=== PATIENT | male | born 1970 | race Caucasian/White ===

== ENCOUNTER → 2023-09-16 11:22 | Outpatient (REF) | payer OTHER, SELFPAY | LOC: RAD 11:22 | PROVIDERS: ATTENDING PHYSICIAN Family Medicine | DX: R07.89 Other chest pain (principal) | CPT/HCPCS: 71046 ==

== ENCOUNTER → 2023-10-22 12:52 | Outpatient (REF) | payer OTHER, SELFPAY | LOC: RAD 12:52 | PROVIDERS: ATTENDING PHYSICIAN Family Medicine | DX: R05.1 Acute cough (principal); J18.9 Pneumonia, unspecified organism | CPT/HCPCS: 71046 ==

== ENCOUNTER 2023-11-02 08:11 | Outpatient (RCR) | payer OTHER, SELFPAY | END 2023-11-02 23:59 | disposition home or self-care (01) | LOC: RPT 08:11 | PROVIDERS: ATTENDING PHYSICIAN Specialist; PRIMARYCARE PHYSICIAN Family Medicine | DX: C61 Malignant neoplasm of prostate (principal); M62.89 Other specified disorders of muscle; Z73.6 Limitation of activities due to disability | CPT/HCPCS: 97162; 97530 ==

== ENCOUNTER → 2023-11-05 07:21 | Outpatient (REF) | payer OTHER, SELFPAY | LOC: HWRAD 07:21 | PROVIDERS: ATTENDING PHYSICIAN Internal Medicine; FAMILY PHYSICIAN Family Medicine | DX: R04.2 Hemoptysis (principal); J18.9 Pneumonia, unspecified organism | CPT/HCPCS: 71250 ==

== ENCOUNTER 2023-12-01 06:10 | Day surgery (SDC) | payer OTHER, SELFPAY ==
[2023-12-01] VITALS (13 sets, daily range): BP systolic 105–130; BP diastolic 63–82; BMI 27.8
[2023-12-01] MEDS: NEOMYCIN ENEMA 1 BOTTLE RECTAL (06:40)
[2023-12-01] MEDS: NORMOSOL-R 1000 IV ×3 (06:58→21:43)
[2023-12-01] MEDS: TORADOL 15 MG IV ×2 (15:29→21:45)
[2023-12-01] MEDS: COLACE 100 MG PO (15:29)
[2023-12-01] MEDS: TYLENOL 650 MG PO (19:32)
[2023-12-01] MEDS: POLYSPORIN OINTMENT 1 APPLIC TOPICAL (21:44)
[2023-12-02] MEDS: TYLENOL 650 MG PO (01:09)
[2023-12-02 03:40] VITALS: BP 115/68
[2023-12-02] MEDS: TORADOL 15 MG IV ×2 (03:41→09:57)
[2023-12-02] MEDS: NORMOSOL-R 1000 IV (05:44)
[2023-12-02 06:02] LABS: Hematocrit 35.9 % (39.0-52.0); Hemoglobin 12.1 g/dL (13.0-18.0); Mean Corp Hgb Conc. 33.7 g/dL (33.0-37.0); Mean Corpuscular Hgb 29.2 pg (27.0-31.0); Mean Corpuscular Volume 86.7 fL (80.0-94.0); Mean Platelet Volume 9.6 fL (7.4-10.4); Platelet Count 274 10^3/uL (130-400); Red Blood Cell Count 4.14 10^6/uL (4.70-6.10); Red Cell Dist. Width 12.1 % (11.5-14.5); White Blood Cell Count 13.3 10^3/uL (4.8-10.8)
--- NOTE | 2023-12-02 06:05 | CM ---
Patient is scheduled for a Robotic Prostatectomy on 12/01/23. Spoke with patient prior to surgery via telephone to complete case management assessment and assess for discharge planning needs. Patient reports that he lives with his significant other
in a two story home. There is one step to enter and a flight of steps to the second floor. He currently functions independently. He has no DME and has never had VN services. He has prescription drug coverage and uses [facility] in [place].
PCP is Toney Daniels
Discussed discharge plans. Patient plans to return home at discharge. He states that he will have support from his significant other when he goes home. Discussed likely need for VN services and reviewed options. Patient selects VN.
[place] text will be sent to VN liaison, Christiane Phan, alerting her to surgery date and likely need for VN.
[2023-12-02 06:25] LABS: Blood Urea Nitrogen 16 mg/dl (9-20); Calcium 8.9 mg/dl (8.4-10.2); Carbon Dioxide 26 mmol/L (22-30); Chloride 99 mmol/L (98-107); Estimated Creatinine Clearance 78 ml/min; Glucose 119 mg/dl (70-99); Potassium 4.9 mmol/L (3.5-5.1); Sodium 137 mmol/L (135-145); eGFR > 60.00
[2023-12-02 07:12] VITALS: BP 153/83
--- NOTE | 2023-12-02 08:10 | W.PN.URO.CBU ---
Today's Communication / Plan
-
discharge
Assessment / Plan
-
stable
Diagnosis
-
Date of Service: December 02, 2023
-
Patient Diagnosis: Prostate Cancer, s/p Robotic Prostatectomy
Post Op Day: 1
Subjective
-
expected abdomino-pelvic discomfort
has ambulated
had BM this AM
feels fit for discharge
Objective
-
Vital Signs
Temp Pulse Resp BP Pulse Ox
98.2 F 61 16 115/68 97
12/02/23 03:40 12/02/23 03:40 12/02/23 03:40 12/02/23 03:40 12/02/23 03:40
Intake and Output
12/01/23 12/02/23 12/03/23
06:59 06:59 06:59
Intake Total 3730 / 3730
Output Total 4125 / 4125
Balance -395 / -395
Intake:
Oral fluids 1930 / 1930
IV fluids (Total) 1800 / 1800
Normosol 300 / 300
Output:
Urine, Reis 4125 / 4125
Other:
Number of unmeasured liquid
stools
Rectum 1
Laboratory Results
12/02/23 05:35
12/02/23 05:35
Physical Exam
-
General - well developed, well nourished, no acute distress
Chest - clear bilaterally
Abdomen - soft, no distention
Genitalia -Reis draining francisca urine
Skin - warm & dry with no rash
Neuro - AOx3, no motor deficits
Extremities - no clubbing, no cyanosis, no edema
Dressings - clean, dry, intact
[2023-12-02] MEDS: POLYSPORIN OINTMENT 1 APPLIC TOPICAL (08:27)
[2023-12-02] MEDS: COLACE PO ×2 (08:29→09:57)
--- NOTE | 2023-12-02 10:12 | CM ---
Reviewed the chart notes. Referral for [facility] sent via [facility]. Patient is being discharged to home today. Patient's significant other will provide transportation home. CM continues to be available to patient/family and is monitoring medical
plan for needs at discharge.
Plan: Discharge to home with VN services.
--- NOTE | 2023-12-02 11:25 | VNURNOTE ---
Home Health Liaison met with patient at 1015 to discuss [facility] nurse visits, schedule and homebound status. Patient is agreeable and understands that visits at home will be 2-3 x per week to assess and teach medical management and catheter care.
[facility] brochure provided with contact information. Patient is aware that [facility] will contact him for start of care in 1-2 days after discharge from .
[facility] referral completed in [facility].
[2023-12-02 11:34] VITALS: BP 166/93
[2023-12-02] MEDS: ULTRAM 50 MG PO (12:16)
== END 2023-12-02 13:31 | disposition home or self-care (01) ==
LOC: SDS 06:10
PROVIDERS: ATTENDING PHYSICIAN Specialist
DX: C61 Malignant neoplasm of prostate (principal)
CPT/HCPCS: 55866; 38571; 53431; 88305; 88307; 88309; 80048; 85027

== ENCOUNTER 2024-02-03 23:24 | Inpatient (IN) | payer OTHER, SELFPAY ==
[2024-02-03 18:46] VITALS: BP 133/76
--- NOTE | 2024-02-03 19:37 | ED.GENMED ---
History of Present Illness
<FREDDY Duarte - Last Filed: 02/03/24 23:02>
General
Chief Complaint: Fever
Source: patient
Exam Limitations: none
Time Seen by Provider: 02/03/24 19:27
History of Present Illness
History of Present Illness:
This is a 53 year old male that comes in with c/o fever and abd pain. States that 2 days ago he started feeling dizzy. States that he thought it was the heat. States that he laid down and he started with a fever. States that this started on Wednesday
at 2pm. States that on Wednesday he went to work and left early as he was not feeling good. States that he went home and started with chills and his temp was going up and down. States that the highest was 101.7 and then 98.3. Today he felt good this
morning and he eat and then tonight at 6pm he was outside and started with chills. States that he has some abd pain, headache and he feels a little foggy. Denies any chest pain, SOB, nausea, vomiting, diarhea, urinary burning.
Past History
<FREDDY Duarte - Last Filed: 02/03/24 23:02>
Past History
ED Past Medical History: Arrthythmia (Atrial fib), Cancer (Prostate CA) and Other (Diverticulitis, PNA, )
ED Past Surgical History: Cardiac (Ablation), Urological (Prostatectomy) and Other ([place] teeth, Hemorrhoids, )
Social History
Tobacco: Non-smoker
Alcohol: Occasional
Personal: Single
Living: alone
Review of Systems
<FREDDY Duarte - Last Filed: 02/03/24 23:02>
Review of Systems
All Other Systems: ROS reviewed and negative except as documented in HPI and ROS
Constitutional: Reports fever and chills
EENT: Reports no symptoms
Respiratory: Reports no symptoms; Denies cough or trouble breathing
Cardiac: Reports no symptoms; Denies chest pain
ABD/GI: Reports abdominal pain; Denies nausea, vomiting or diarrhea
: Reports no symptoms; Denies dysuria, frequency or urgency
Musculoskeletal: Reports no symptoms
Skin: Reports no symptoms
Neurological: Reports headache and other (like he is in a fog)
Psychiatric: Reports no symptoms
Phy Exam
<FREDDY Duarte - Last Filed: 02/03/24 23:02>
General Physical Exam
General Presentation: no apparent distress
General age: appears stated age
General Skin: warm and dry
General Habitus: normal
General Mental: alert
General Hydration: appears well hydrated
ENT Exam
ENT Exam: TM's normal, pharynx normal and neck supple
Eye Exam
Eye Exam: EOMI
Cardiovascular Exam
Cardiovascular Exam: regular rate/rhythm, no edema, no murmur and normal peripheral pulses
Pulmonary Exam
Pulmonary Exam: lungs clear, no respiratory distress, no rales, chest non tender, no crackles, no rhonchi, no wheezing and no cough
Gastrointestinal Exam
Gastrointestinal Exam: normal bowel sounds, soft, no organomegaly, no pulsatile mass, non distended and other (LLQ tenderness with palpation)
Musculoskeletal Exam
Musculoskeletal Exam: full ROM and no edema
Skin Exam
Skin Exam: normal color, warm/dry, no rash and no petechia
Psychiatric Exam
Psychiatric Exam: normal mood/affect
Course
<FREDDY Duarte - Last Filed: 02/03/24 23:02>
Orders/Labs/Results
Orders:
Orders
02/03/24 19:36
0.9% Sodium Chloride 1000 ml [Nss] 1,000 ml IV BOLUS
Ketorolac [Toradol] 30 mg IV NOW STA
02/03/24 19:42
CT Abd/pel W Iv And Oral Contr Urgent
Comment:
Reason For Exam: left lower abd pain
Iohexol [Omnipaque] See Protocol PO NOW STA
02/03/24 19:54
COVID-19 Antigen Urgent
Source: Nasal Swab
Complete Blood Count/With Diff Urgent
Comprehensive Metabolic Panel Urgent
Lactate Level [Lactic Acid] Urgent
Blood Culture Q30M
ROLANDO Source: Blood/Venous
Specimen Description:
Influenza A+B Rapid Molecular Urgent
ROLANDO Source: Nasal Swab
Specimen Description:
02/03/24 20:08
Blood Culture Q30M
ROLANDO Source: Blood/Venous
Specimen Description:
02/03/24 22:05
Urinalysis Reflex To Culture Urgent
Date Specimen was Collected: 02/03/24
Time Specimen was Collected: 22:04
Abnormal Lab Results
02/03/24
19:54
WBC 16.8 H 10^3/uL
(4.8-10.8)
RBC 4.24 L 10^6/uL
(4.70-6.10)
Hgb 12.5 L g/dL
(13.0-18.0)
Hct 34.7 L %
(39.0-52.0)
Abs Immat Gran (auto) 0.1 H 10^3/uL
(0-0.05)
Absolute Neuts (auto) 15.1 H 10^3/uL
(1.4-6.5)
Absolute Lymphs (auto) 0.6 L 10^3/uL
(1.2-3.4)
Absolute Monos (auto) 0.9 H 10^3/uL
(0.1-0.6)
Neutrophils % 90.1 H %
(42.2-75.2)
Lymphocytes % 3.6 L %
(20.5-51.1)
Glucose 134 H mg/dl
(70-99)
02/03/24 19:54
02/03/24 19:54
Leukocytosis. H/H slightly low. Glucose nonfasting. Lactic acid normal at 0.8, COVID negative, Influenza Negative. Urine negative for infection
Vital Signs
Initial and Last Documented VS:
Initial Vital Signs
Temp Pulse Resp BP Pulse Ox
101.5 F H 116 20 133/76 97
02/03/24 18:46 02/03/24 18:46 02/03/24 18:46 02/03/24 18:46 02/03/24 18:46
Last Documented Vital Signs
Temp Pulse Resp BP Pulse Ox
99.3 F 101 18 127/75 95
02/03/24 21:12 02/03/24 19:45 02/03/24 19:45 02/03/24 19:43 02/03/24 19:45
<Berto Reynoso, - Last Filed: 02/03/24 22:42>
Orders/Labs/Results
Orders:
Orders
02/03/24 19:36
0.9% Sodium Chloride 1000 ml [Nss] 1,000 ml IV BOLUS
Ketorolac [Toradol] 30 mg IV NOW STA
02/03/24 19:42
CT Abd/pel W Iv And Oral Contr Urgent
Comment:
Reason For Exam: left lower abd pain
Iohexol [Omnipaque] See Protocol PO NOW STA
02/03/24 19:54
COVID-19 Antigen Urgent
Source: Nasal Swab
Complete Blood Count/With Diff Urgent
Comprehensive Metabolic Panel Urgent
Lactate Level [Lactic Acid] Urgent
Blood Culture Q30M
ROLANDO Source: Blood/Venous
Specimen Description:
Influenza A+B Rapid Molecular Urgent
ROLANDO Source: Nasal Swab
Specimen Description:
02/03/24 20:08
Blood Culture Q30M
ROLANDO Source: Blood/Venous
Specimen Description:
02/03/24 22:05
Urinalysis Reflex To Culture Urgent
Date Specimen was Collected: 02/03/24
Time Specimen was Collected: 22:04
Abnormal Lab Results
02/03/24
19:54
WBC 16.8 H 10^3/uL
(4.8-10.8)
RBC 4.24 L 10^6/uL
(4.70-6.10)
Hgb 12.5 L g/dL
(13.0-18.0)
Hct 34.7 L %
(39.0-52.0)
Abs Immat Gran (auto) 0.1 H 10^3/uL
(0-0.05)
Absolute Neuts (auto) 15.1 H 10^3/uL
(1.4-6.5)
Absolute Lymphs (auto) 0.6 L 10^3/uL
(1.2-3.4)
Absolute Monos (auto) 0.9 H 10^3/uL
(0.1-0.6)
Neutrophils % 90.1 H %
(42.2-75.2)
Lymphocytes % 3.6 L %
(20.5-51.1)
Glucose 134 H mg/dl
(70-99)
02/03/24 19:54
02/03/24 19:54
Vital Signs
Initial and Last Documented VS:
Initial Vital Signs
Temp Pulse Resp BP Pulse Ox
101.5 F H 116 20 133/76 97
02/03/24 18:46 02/03/24 18:46 02/03/24 18:46 02/03/24 18:46 02/03/24 18:46
Last Documented Vital Signs
Temp Pulse Resp BP Pulse Ox
99.3 F 101 18 127/75 95
02/03/24 21:12 02/03/24 19:45 02/03/24 19:45 02/03/24 19:43 02/03/24 19:45
<FREDDY Duarte - Last Filed: 02/03/24 23:02>
MDM/Problems Addressed
Differential Diagnosis Includes:
diverticulitis, COVID, Influenza
MDM/Problems Addressed:
This is a 53 year old male that comes in with c/o fever and abd pain. States that this started on Wednesday and he has had a fever with chills.
Will get labs. COVID, Influenza and CT scan. Will give IV fluids and medicate for pain.
Back into see patient. Explained that the CT shows a cystic mass that is coming off the bladder. it is hard to say if they are connecting. Will admit patient and start on antibiotics. Hospitalist notified.
Chronic conditions affecting care:
History of diverticulitis,
Acute Exacerbation and/or Progression of Chronic Illness:
NA
<FREDDY Duarte - Last Filed: 02/03/24 23:02>
*Radiology
Radiology exam reviewed: radiology read reviewed (CT-At the left anterior margin of the urinary bladder, ther is a cystic mass measuring approximately 6X6X(.5cm in AP, trnsverse and craniocaudal dimensions respectively. This mass is new when
compared with the 08/31/2023 MRI examination and the etiology of this mass is uncertain. As it abuts the ), all reviewed NAD by ED Provider (CT cont- the urinary bladder, bladder diverticulum is included in the differential diagnosis though no
definite connection to the urinary bladder is demonstrated. There is concentric thickening of the wall of the urinary bladder to as much as 1cm such as may be seen with chronic partial bladder ) and other (CT cont-obstruction. Diverticuli are
present in the colon with no CT evidence of Diverticulitis. There is bilateral L5 spondylolysis with grade 2 spondylolisthesis of L5 on X1. There is degenerative disc disease at L5-S1. )
*Pulse Oximetry
Patient hypoxic: no
*EKG
Interpreted by ED Provider?: NA
Rate: EKG- N/A
*Caustic Room Attendant Interpretation
Rate: Caustic Room Attendant- N/A
*Critical Care Note
Total Time (30-74mins, 75-104mins- exclusive of procedures): Not Applicable
ED Attending Note
<FREDDY Duarte - Last Filed: 02/03/24 23:02>
-
Portions of this chart may have been created with voice recognition software.� Occasional wrong word or��sound alike� substitutions may have occurred due to the inherent limitations of voice recognition software.
<Berto Reynoso DO - Last Filed: 02/03/24 22:42>
ED Attending Note
Patient seen and examined by attending physician: Yes
I performed the substantive portion of visit, reviewed & personally made and approve the management plan that is documented in note by myself or MARIANNE.: Yes
Discharge Plan
Departure
Patient Disposition: Admit
Date of Disposition: 02/03/24
Time of Disposition: 23:00
Admit to: Med/Surg
Presentation/result/management discussed w/ accepting MD/DO: Hospitalist
Patient with high blood pressure during this ER visit?: Yes
Condition: Good
Covid-19: Negative COVID-19
Discharge Problem:
Fever, Abdominal cystic mass
Prescriptions:
No Action
multivit with min-folic acid [Multivitamin Gummies] 200 mcg Tablet,Chewable
2 tab PO DAILY
Probiotic 3 billion cell Capsule
3,000 mmu cells PO DAILY
cholecalciferol (vitamin D3) [Vitamin D3] 25 mcg (1,000 unit) Tablet
25 mcg PO DAILY
fluticasone propionate [Flonase Allergy Relief] 50 mcg/actuation [place],Suspension
1 spray INTRANASAL PRN PRN (Reason: sinus congestion)
fexofenadine-pseudoephedrine [Judi-D 24 Hour] 180-240 mg Tablet Extended Release 24 Hr
1 tab PO NOON
Rx Instructions:
@4pm
omega 5-zrt-ihs-fish oil [Fish Oil] 1,000 mg (120 mg-180 mg) Capsule
1 cap PO DAILY
naproxen sodium [Aleve] 220 mg tablet
440 mg PO BID PRN (Reason: pain) Qty: 1 0RF
tramadol 50 mg tablet
50 mg PO TID PRN (Reason: severe pain) Qty: 10 0RF
Referrals:
Toney Daniels, DO [Family Provider] -
Interventions
Interventions:
*Risk Screen - Suicide Last Done: 02/03/24 18:46
*General Assessment Last Done: 02/03/24 18:46
*Neglect/Abuse Screening Last Done: 02/03/24 18:46
ED- Fall Risk Assessment Last Done: 02/03/24 19:41
*ED COVID-19 Vaccine History Last Done: 02/03/24 18:46
ED- Neurological Assessment Last Done: 02/03/24 19:41
ED-Skin Assessment Last Done: 02/03/24 19:41
Discharge Date and Time
Print Language: GREENLANDIC
[2024-02-03 19:41] VITALS: BMI 24.9
[2024-02-03 19:43] VITALS: BP 127/75
[2024-02-03 20:00] VITALS: BP 122/72
[2024-02-03] MEDS: NSS 1000 IV (20:01)
[2024-02-03] MEDS: OMNIPAQUE 50 ML PO (20:02)
[2024-02-03] MEDS: TORADOL 30 MG IV (20:02)
[2024-02-03 20:06] LABS: % Basophils 0.2 % (0-2); % Eosinophils 0.1 % (0-6); % Immature Granulocytes 0.5 % (0-0.5); % Lymphocytes 3.6 % (20.5-51.1); % Monocytes 5.5 % (1.7-9.3); % Neutrophils 90.1 % (42.2-75.2); Absolute Immature Granulocytes 0.1 10^3/uL (0-0.05); Absolute Lymphocytes 0.6 10^3/uL (1.2-3.4); Absolute Monocytes 0.9 10^3/uL (0.1-0.6); Absolute Neutrophils 15.1 10^3/uL (1.4-6.5); Hematocrit 34.7 % (39.0-52.0); Hemoglobin 12.5 g/dL (13.0-18.0); Mean Corpuscular Hgb 29.5 pg (27.0-31.0); Mean Corpuscular Volume 81.8 fL (80.0-94.0); Mean Platelet Volume 9.5 fL (7.4-10.4); Nucleated Red Blood Cells % 0 % (-); Platelet Count 201 10^3/uL (130-400); Red Blood Cell Count 4.24 10^6/uL (4.70-6.10); White Blood Cell Count 16.8 10^3/uL (4.8-10.8)
[2024-02-03 20:17] LABS: Lactic Acid 0.8 mmol/L (0.7-2.0)
[2024-02-03 20:19] LABS: COVID-19 Antigen Negative (Negative)
[2024-02-03 20:23] LABS: ALT (SGPT) 30 U/L (0-50); AST (SGOT) 42 U/L (17-59); Albumin 4.2 g/dl (3.5-5.0); Alkaline Phosphatase 92 U/L (38-126); Blood Urea Nitrogen 10 mg/dl (9-20); Calcium 9.3 mg/dl (8.4-10.2); Carbon Dioxide 24 mmol/L (22-30); Chloride 102 mmol/L (98-107); Estimated Creatinine Clearance 98 ml/min; Glucose 134 mg/dl (70-99); Potassium 3.6 mmol/L (3.5-5.1); Sodium 135 mmol/L (135-145); Total Bilirubin 1.1 mg/dl (0.2-1.3); Total Protein 7.2 g/dl (6.3-8.2); eGFR > 60.00
[2024-02-03 21:00] VITALS: BP 117/65
[2024-02-03 22:18] LABS: Urine Albumin Negative (Neg - Trace); Urine Bilirubin Negative (Negative); Urine Character Clear (Clear); Urine Color Yellow; Urine Glucose Negative (Negative); Urine Ketone Negative (Negative); Urine Leukocyte Negative (Negative); Urine Nitrite Negative (Negative); Urine Occult Blood Negative (Negative); Urine Urobilinogen 1+ (Neg - 1+)
--- NOTE | 2024-02-03 23:23 | HPS.HSE ---
Family Physician
-
Family Physician: Toney Daniels
Chief Complaint
-
abdominal pain
History of Present Illness
53-year-old male past medical history of persistent atrial fibrillation, atrial flutter, diverticulitis, questionable irritable bowel syndrome, prostate cancer, probable BPH, insomnia, obesity, presenting with fever and abdominal pain which started
2 days ago. Pain is located in the suprapubic region. Pain does not radiate anywhere. Denies any urinary symptoms such as frequency or difficulty urinating or burning or blood in the urine. He did have some nausea without vomiting. Denies any
diarrhea. Denies any cough.
He had prostatectomy 2 months ago for prostate cancer by Dr. Ramsey and although he did have urinary symptoms previously this had resolved after surgery.
He drinks alcohol occasionally. He denies smoking.
Medical History
Past Medical History
Past Medical History: Reports Other ( persistent atrial fibrillation, atrial flutter, diverticulitis, questionable irritable bowel syndrome, prostate cancer, probable BPH, insomnia, obesity)
Past Surgical History: Reports Other ( Cardiac (Ablation), Urological (Prostatectomy) and Other ([place] teeth, Hemorrhoids, ))
Social History
Tobacco: Non-smoker
Alcohol: Occasional
Drug: None
Family History
Family History: Not pertinent
Allergies / Home Medications
Allergies reflects when Allergies were last updated in [employer].
Home Medications with original date entered in [employer]
Allergy/Medication List:
Allergies
Allergy/AdvReac Type Severity Reaction Status Date / Time
poison kirk extract Allergy super Verified 02/03/24 18:48
sensitive
and speads
easily
poison oak extract Allergy super Verified 02/03/24 18:48
sensitive
and speads
easily
poison sumac extract Allergy super Verified 02/03/24 18:48
sensitive
and speads
easily
pollen extracts Allergy sinus Verified 02/03/24 18:48
congestion
and
irritable
throat
Home Medications
multivitamin with minerals-folic acid 200 mcg chewable tablet (Multivitamin Gummies) 2 tab PO DAILY 05/20/23
cholecalciferol (vitamin D3) 25 mcg (1,000 unit) tablet (Vitamin D3) 25 mcg PO DAILY 10/28/23
lactobacillus combination no.4 3 billion cell capsule (Probiotic) 3,000 mmu cells PO DAILY 10/28/23
fexofenadine-pseudoephedrine ER 180 mg-240 mg tablet,ext.release 24 hr (Judi-D 24 Hour) 1 tab PO NOON 11/25/23
fluticasone propionate 50 mcg/actuation nasal spray,suspension (Flonase Allergy Relief) 1 spray intranasal PRN PRN sinus congestion 11/25/23
omega 8-sct-owp-fish oil 1,000 mg (120 mg-180 mg) capsule (Fish Oil) 1 cap PO DAILY 11/25/23
naproxen sodium 220 mg tablet (Aleve) 440 mg (2 x 220 mg) PO BID PRN pain #1 tab 12/01/23
tramadol 50 mg tablet 50 mg PO TID PRN severe pain #10 tabs 12/01/23
Review of Systems
-
History Source: Patient
A 12 point ROS was completed and negative except as noted: Yes
Constitutional: Reports No Symptoms
EENT: Reports No Symptoms
Respiratory: Reports No Symptoms
Cardiac: Reports No Symptoms
Abdomen/GI: Reports See HPI
: Reports No Symptoms
Musculoskeletal: Reports No Symptoms
Skin: Reports No Symptoms
Neurological: Reports No Symptoms
Endocrine: Reports No Symptoms
Hematologic/Lymphatic: Reports No Symptoms
Psych: Reports No Symptoms
Physical Exam
Vital Signs
Vital Signs
Temp Pulse Resp BP Pulse Ox
99.3 F 101 18 127/75 95
02/03/24 21:12 02/03/24 19:45 02/03/24 19:45 02/03/24 19:43 02/03/24 19:45
Physical Exam
General: Well Developed, Well Nourished and No Apparent Distress
HEENT: NormoCephalic, Moist mucous membranes and Atraumatic
Respiratory: Clear
Cardiac: S1/S2 and Regular Rhythm; No Murmur or Rub
GI: Soft, Non Distended, Normal Bowel Sounds and Tender (suprapubic ); No Organomegaly
Rectal: Deferred by Provider
Musculoskeletal: No Clubbing, No Cyanosis and No Edema
Skin: No Rash
Neuro: Nonfocal/grossly intact
Laboratory Results
-
02/03/24 19:54
02/03/24 19:54
Laboratory Results
Lactic Acid 0.8 mmol/L (0.7-2.0) 02/03/24 19:54
Total Bilirubin 1.1 mg/dl (0.2-1.3) 02/03/24 19:54
AST 42 U/L (17-59) 02/03/24 19:54
ALT 30 U/L (0-50) 02/03/24 19:54
Alkaline Phosphatase 92 U/L (38-126) 02/03/24 19:54
Data Reviewed
-
Lab Data: Labs Reviewed by me
Old Records: Reviewed
Impression/Plan
-
IMPRESSION:
PLAN:
# Sepsis (fever, tachycardia, leukocytosis) secondary to bladder mass possible abscess versus diverticulum
-CT abdomen pelvis shows cystic mass 6 x 6 x 9.5 cm at the left anterior margin of the urinary bladder which is new and abuts the urinary bladder which could be bladder diverticulum however no definitive connection to the urinary bladder is
demonstrated, concentric thickening of the wall of the urinary bladder
-Presenting like abscess
-Interestingly urinalysis does not suggest infection
-Check blood cultures
-IV fluids
-Zosyn
-N.p.o.
-Toradol, Dilaudid as needed for pain
-Urology consulted
History of prostate cancer status post prostatectomy 2 months ago
Probable BPH
Prior atrial fibrillation/atrial flutter resolved status post ablation
-Not on anticoagulation
History of diverticulitis
Questionable irritable bowel syndrome
Insomnia
Obesity
Full code
DVT prophylaxis�SCDs
N.p.o.
[2024-02-03] MEDS: ZOSYN 50 IV (23:41)
[2024-02-03 23:42] VITALS: BP 105/63
[2024-02-04] VITALS (7 sets, daily range): BP systolic 89–123; BP diastolic 59–69; BMI 27.5
--- NOTE | 2024-02-04 00:04 | CON.MD ---
Consultation - Medical
-
see dictated note
pt underwent robotic prostatectomy and LEFT sided pelvic lymph node dissection with dr julio end of december
has done very well- no urinary problems, no hematuria or dysuria, normal bowel function
admitted with 3 days of low grade temps/maliase and some supra-pubic discomfort
abd benign, rectal exam nl
wbc elevated- other labs wnl
ct scan shows large fluid collection of left side of bladder/pelvis- i believe c/w lymphocele
plan
admit
npo
zosyn
will review with dr fischer in am- but tentative plan is for IR drainage tomorrow
--- NOTE | 2024-02-04 01:00 | PTCARENOTE ---
Received patient from ED via stretcher; Lucky Ant orders. Pt admitted for Sepsis r/t large fluid collection of left side of bladder/pelvis, possible lymphocele per Urology. Pt ordered NPO (sips of clears ok) for tentative plan to IR drainage. PMH and
medications reviewed by this RN and patient. Plan of care discussed. Call richardson within reach
[2024-02-04] MEDS: NSS 1000 IV ×2 (01:01→11:40)
[2024-02-04] MEDS: ZOSYN 50 IV ×3 (05:04→17:17)
[2024-02-04 07:18] LABS: Hematocrit 33.3 % (39.0-52.0); Hemoglobin 11.2 g/dL (13.0-18.0); Mean Corp Hgb Conc. 33.6 g/dL (33.0-37.0); Mean Corpuscular Hgb 29.2 pg (27.0-31.0); Mean Corpuscular Volume 86.7 fL (80.0-94.0); Mean Platelet Volume 10.2 fL (7.4-10.4); Platelet Count 185 10^3/uL (130-400); Red Blood Cell Count 3.84 10^6/uL (4.70-6.10); Red Cell Dist. Width 13.1 % (11.5-14.5); White Blood Cell Count 17.8 10^3/uL (4.8-10.8)
[2024-02-04 07:26] LABS: INR 1.28; PT 16.1 Sec (11.4-14.6)
--- NOTE | 2024-02-04 07:32 | W.PN.URO.CBU ---
Today's Communication / Plan
-
IR drainage of fluid collection
Assessment / Plan
-
post op fever/pelvic fluid collection c/w lymphocele
reviewed with dr fischer and IR
continue zosyn/add probiotic
npo for IR drainage of collection with fluid to be sent for cx and cr level
Diagnosis
-
Date of Service: February 04, 2024
-
Patient Diagnosis:
s/p robotic prostatectomy
readmit with fluid/pelvic pain
ct c/w lymphocele
Subjective
-
pt feels about the same
soome loose stools with antibx
no problems urinating
wbc up a little/cr normal
Objective
-
Vital Signs
Temp Pulse Resp BP Pulse Ox
97.7 F 90 20 115/59 96
02/04/24 03:54 02/04/24 00:35 02/04/24 00:35 02/04/24 00:35 02/04/24 00:35
Intake and Output
02/03/24 02/04/24 02/05/24
06:59 06:59 06:59
Intake Total 700 / 700
Balance 700 / 700
Intake:
IV fluids (Total) 650 / 650
IV piggybacks 50 / 50
Laboratory Results
02/04/24 06:28
Review of Systems
-
Constitutional: Fever and Fatigue
Respiratory: No Symptoms
Cardiac: No Symptoms
Abdomen/GI: Abdominal Pain
: No Symptoms
Physical Exam
-
General - no acute distress
Abdomen - soft, non-tender
Genitalia - normal
[2024-02-04 07:45] LABS: ALT (SGPT) 39 U/L (0-50); AST (SGOT) 47 U/L (17-59); Albumin 3.4 g/dl (3.5-5.0); Alkaline Phosphatase 100 U/L (38-126); Blood Urea Nitrogen 11 mg/dl (9-20); Calcium 8.6 mg/dl (8.4-10.2); Carbon Dioxide 25 mmol/L (22-30); Chloride 103 mmol/L (98-107); Estimated Creatinine Clearance 77 ml/min; Glucose 105 mg/dl (70-99); Potassium 3.9 mmol/L (3.5-5.1); Sodium 137 mmol/L (135-145); Total Bilirubin 1.2 mg/dl (0.2-1.3); Total Protein 6.2 g/dl (6.3-8.2); eGFR > 60.00
[2024-02-04] MEDS: VISBIOME 1 CAP PO (08:22)
[2024-02-04] MEDS: THERAGRAN 1 TABLET PO (08:22)
[2024-02-04] MEDS: FLORASTOR 250 MG PO ×2 (08:22→20:09)
[2024-02-04] MEDS: VITAMIN D3 (cholecalciferol) 25 MCG PO (08:22)
--- NOTE | 2024-02-04 08:39 | W.PN.HOSP.TC ---
Today's Communication/Plan
-
see outlined plan
Assessment / Plan
Assessment / Plan
Assessment:
Sepsis (fever, tachycardia, leukocytosis) secondary to bladder mass possible abscess vs lymphocele versus diverticulum
- CT: left anterior margin of the urinary bladder, there is a cystic mass measuring approximately 6 x 6 x 9.5 cm in AP, transverse and craniocaudal dimensions respectively. This mass is new when compared with the 08/31/2023 MRI examination and the
etiology of this mass is uncertain. As it abuts the urinary bladder, bladder diverticulum is included in the differential diagnosis though no definite connection to the urinary bladder is demonstrated. concentric thickening of the wall of the
urinary bladder to as much as 1 cm such as may be seen with chronic partial bladder outlet obstruction.
- Urology consulted
- NPO for IR guided drainage today
- continue Zosyn day 1 and follow cultures
- pain control
History of prostate cancer
Underlying BPH
- s/p Robotic-assisted laparoscopic radical prostatectomy with Left staging pelvic lymphadenectomy 11/2023
- follows with Dr. Ramsey
Prior atrial fibrillation/atrial flutter resolved status post ablation
- not on anticoagulation
History of diverticulitis
Questionable IBS History
Insomnia
Obesity
DVT ppx: SCDs
Code: Full
Anticipated Discharge: > 48 hours
Subjective/Interval History
-
Date of Service: February 04, 2024
resting comfortable, no significant pain presently
Urinating ok
some loose stools
Objective Data
-
Labs:
Laboratory Results
02/04/24
06:28
WBC 17.8 H
Hgb 11.2 L
Hct 33.3 L
Plt Count 185
PT 16.1 H
INR 1.28
Sodium 137
Potassium 3.9
Chloride 103
Carbon Dioxide 25
BUN 11
Creatinine 1.0
Glucose 105 H
Calcium 8.6
Total Bilirubin 1.2
AST 47
ALT 39
Alkaline Phosphatase 100
Vital Signs:
Vital Signs
Temp Pulse Resp BP Pulse Ox
100.0 F 92 16 111/63 96
02/04/24 07:25 02/04/24 07:25 02/04/24 07:25 02/04/24 07:25 02/04/24 07:25
I&O
02/03/24 02/04/24 02/05/24
06:59 06:59 06:59
Intake Total 700 / 700
Balance 700 / 700
Physical Exam
-
General: Fever and Other (fatigued)
HEENT: Normocephalic and Atraumatic
Respiratory: Negative Wheezes or Rales
Cardiac: Regular Rhythm and S1/S2
GI: Soft and Nontender
Genito-urinary: No Costovertebral Tender
Musculoskeletal: No Edema
Neuro: AO x 3
Hematologic / Lymphatic: No Lymphadenopathy
Psych: Calm
Data Reviewed
-
Total Time Spent with Patient (in minutes): 45
Labs: Labs Reviewed by me
--- NOTE | 2024-02-04 10:58 | CM ---
Reviewed the chart notes and spoke with the patient at the bedside. Patient resides with significant other in a two story home with one step to enter. Patient reports no DME or SNF. Patient has had [facility] in the past. Patient confirmed pharmacy
of choice is the [facility] [address] [place]. The patient is scheduled to go to IR today for drainage of collection of fluid. CM continues to be available to patient/family and is monitoring medical plan for needs at discharge.
Plan: Discharge plans will depend on the patient's progress.
[2024-02-04 15:51] LABS: Body Fluid Creatinine 0.9 mg/dl
[2024-02-05] MEDS: NSS 1000 IV (00:13)
[2024-02-05] MEDS: TYLENOL 650 MG PO ×3 (00:13→20:25)
[2024-02-05] MEDS: ZOSYN 50 IV ×4 (00:14→17:49)
[2024-02-05 07:50] VITALS: BP 109/61
[2024-02-05] MEDS: NSS IV (08:35)
[2024-02-05] MEDS: VITAMIN D3 (cholecalciferol) 25 MCG PO (08:46)
[2024-02-05] MEDS: VISBIOME 1 CAP PO (08:46)
[2024-02-05] MEDS: FLORASTOR 250 MG PO ×2 (08:46→20:26)
[2024-02-05] MEDS: THERAGRAN 1 TABLET PO (08:46)
--- NOTE | 2024-02-05 09:22 | W.PN.URO.CBU ---
Today's Communication / Plan
-
Maintain drain
Continue IV abx pending cultures
Assessment / Plan
-
53m s/p radical prostatectomy, admitted with post op fever/pelvic fluid collection c/w lymphocele
s/p drainage by IR 02/03
continue zosyn
f/u cultures - gram positive organism prelim
Plan for discharge with drain to bulb suction and recording daily outputs
Diagnosis
-
Date of Service: February 05, 2024
-
Patient Diagnosis:
s/p robotic prostatectomy
readmit with fluid/pelvic pain
ct c/w lymphocele
Subjective
-
feeling better
no fevers
clear drainage
no pain
Objective
-
Vital Signs
Temp Pulse Resp BP Pulse Ox
98.2 F 64 14 109/61 97
02/05/24 07:50 02/05/24 07:50 02/05/24 07:50 02/05/24 07:50 02/05/24 07:50
Intake and Output
02/04/24 02/05/24 02/06/24
06:59 06:59 06:59
Intake Total 700 / 700 1750 / 1750
Output Total 110 / 110
Balance 700 / 700 1640 / 1640
Intake:
Oral fluids 1740 / 1740
IV fluids (Total) 650 / 650
IV piggybacks 50 / 50
Amount instilled into Drain (
Total)
Left Abdomen Placed in IR 10
Output:
Drain Output (Total) 110 / 110
Left Abdomen Placed in IR 110 / 110
Other:
Number of approximated MODERATE 3
amounts of urine
Physical Exam
-
General - well developed, well nourished, no acute distress
Chest - clear bilaterally
Abdomen - soft, non-tender, drain with straw colored clear drainage
Skin - warm & dry with no rash
Neuro - AOx3, no motor deficits
Extremities - no clubbing, no cyanosis, no edema
[2024-02-05 09:25] LABS: % Basophils 0.4 % (0-2); % Eosinophils 0.5 % (0-6); % Immature Granulocytes 0.4 % (0-0.5); % Lymphocytes 12.1 % (20.5-51.1); % Monocytes 13.1 % (1.7-9.3); % Neutrophils 73.5 % (42.2-75.2); Absolute Eosinophils 0.1 10^3/uL (0-0.7); Absolute Lymphocytes 1.1 10^3/uL (1.2-3.4); Absolute Monocytes 1.2 10^3/uL (0.1-0.6); Absolute Neutrophils 6.9 10^3/uL (1.4-6.5); Hematocrit 34.2 % (39.0-52.0); Hemoglobin 11.4 g/dL (13.0-18.0); Mean Corp Hgb Conc. 33.3 g/dL (33.0-37.0); Mean Corpuscular Hgb 29.2 pg (27.0-31.0); Mean Corpuscular Volume 87.5 fL (80.0-94.0); Mean Platelet Volume 10.2 fL (7.4-10.4); Nucleated Red Blood Cells % 0 % (-); Platelet Count 148 10^3/uL (130-400); Red Blood Cell Count 3.91 10^6/uL (4.70-6.10); Red Cell Dist. Width 13.6 % (11.5-14.5); White Blood Cell Count 9.4 10^3/uL (4.8-10.8)
--- NOTE | 2024-02-05 09:37 | PTCARENOTE ---
Patient requesting to speak with urology again. Peffer notified via tiger text
[2024-02-05 09:41] LABS: Carbon Dioxide 26 mmol/L (22-30); Estimated Creatinine Clearance 77 ml/min; Glucose 95 mg/dl (70-99); Sodium 141 mmol/L (135-145); eGFR > 60.00
[2024-02-05 09:50] LABS: Blood Urea Nitrogen 16 mg/dl (9-20); Calcium 8.6 mg/dl (8.4-10.2); Chloride 106 mmol/L (98-107); Potassium 4.3 mmol/L (3.5-5.1)
--- NOTE | 2024-02-05 13:11 | W.PN.HOSP.TC ---
Today's Communication/Plan
-
add Vanco for Gram + on culture
continue Zosyn for now
await final culture
EMI Drain/teaching
follow Urology recs
Assessment / Plan
Assessment / Plan
Assessment:
Sepsis (fever, tachycardia, leukocytosis) secondary to bladder mass possible abscess vs lymphocele versus diverticulum
- CT: left anterior margin of the urinary bladder, there is a cystic mass measuring approximately 6 x 6 x 9.5 cm in AP, transverse and craniocaudal dimensions respectively. This mass is new when compared with the 08/31/2023 MRI examination and the
etiology of this mass is uncertain. As it abuts the urinary bladder, bladder diverticulum is included in the differential diagnosis though no definite connection to the urinary bladder is demonstrated. concentric thickening of the wall of the
urinary bladder to as much as 1 cm such as may be seen with chronic partial bladder outlet obstruction.
- Urology following
- s/p IR guided drainage 02/03
- continue Vanco/Zosyn, day 1
- pain control
History of prostate cancer
Underlying BPH
- s/p Robotic-assisted laparoscopic radical prostatectomy with Left staging pelvic lymphadenectomy 11/2023
- follows with Dr. Ramsey
Prior atrial fibrillation/atrial flutter resolved status post ablation
- not on anticoagulation
History of diverticulitis
Questionable IBS History
Insomnia
Obesity
DVT ppx: SCDs
Code: Full
Anticipated Discharge: 24 - 48 hours
Subjective/Interval History
-
Date of Service: February 05, 2024
doing well post-drain procedure yesterday
no fevers
Objective Data
-
Labs:
Laboratory Results
02/05/24
09:00
WBC 9.4
Hgb 11.4 L
Hct 34.2 L
Plt Count 148
Sodium 141
Potassium 4.3
Chloride 106
Carbon Dioxide 26
BUN 16
Creatinine 1.0
Glucose 95
Calcium 8.6
Vital Signs:
Vital Signs
Temp Pulse Resp BP Pulse Ox
98.2 F 64 14 109/61 97
02/05/24 07:50 02/05/24 07:50 02/05/24 07:50 02/05/24 07:50 02/05/24 07:50
I&O
02/04/24 02/05/24 02/06/24
06:59 06:59 06:59
Intake Total 700 / 700 1750 / 1750
Output Total 110 / 110
Balance 700 / 700 1640 / 1640
Physical Exam
-
General: No Apparent Distress
HEENT: Normocephalic and Atraumatic
Respiratory: Negative Wheezes
Cardiac: Regular Rhythm and S1/S2
GI: Soft
Genito-urinary: No Costovertebral Tender and Other (IR drain in place, )
Neuro: AO x 3
Hematologic / Lymphatic: No Lymphadenopathy
Psych: Calm
Data Reviewed
-
Total Time Spent with Patient (in minutes): 41
Labs: Labs Reviewed by me
--- NOTE | 2024-02-05 13:53 | PHA.VAN.IN ---
Assessment
- Assessment
Renal Function: Appears similar to baseline
Maximum Temperature: 102
Minimum Temperature: 97.5
Concomitant Antimicrobials: Piperacillin-tazobactam
AUC Dosing Plan
- Dosing Variables
Dosing Weight (kg): 77.3
Dosing CrCl (ml/min): 77
Vd coefficient (L/kg): 0.7
- Empiric Dosing
Initial / Loading Dose: Vanc 2000mg--25.8mg/kg--administration pending
Maintenance Regimen: Vanc 1000mg IV q12H. Begin 02/05 0600
Estimated AUC (mcg*h/mL): 559.58
Estimated Peak (mcg*h/mL): 33.03
Estimated Trough (mcg/ml): 15.58
Estimated Half Life (H): 10.1
- Monitoring
No levels ordered at this time: Consider levels after 02/06 1800 dose.
Pharmacokinetics Vancomycin I
- -
Patient Age: 53
Patient Sex: Male
Vancomycin Day #: 1
Indication: Genito-Urinary Tract
Requesting Provider: Ruchi
Height / Weight:
Height 5 ft 6 in
Actual Weight 77.292 kg
IBW in k.8
Adjusted BW in k.2
- Vital Signs / Lab Results
Temp Pulse Resp BP Pulse Ox
98.2 F 64 14 109/61 97
02/05/24 07:50 02/05/24 07:50 02/05/24 07:50 02/05/24 07:50 02/05/24 07:50
Lab Results - Hematology
02/03/24 02/04/24 02/05/24
19:54 06:28 09:00
WBC 16.8 H 17.8 H 9.4
Lab Results - Chemistry
02/03/24 02/04/24 02/05/24
19:54 06:28 09:00
BUN 10 11 16
Creatinine 0.8 1.0 1.0
Estimated Creat Clear 98 77 77
Albumin 4.2 3.4 L
02/03/24
19:54
Lactic Acid 0.8
Lab Results - Urine
02/03/24
22:05
Urine Nitrite (Reflex) Negative
Leukocyte Esterase Rfl Negative
Microbiology Results
02/04/24 15:10 Body Fluid Culture - Preliminary
Fluid No Growth After 18-24 Hours
Gram Stain - Preliminary
02/03/24 20:08 Blood Culture - Preliminary
Blood/Venous No Growth in 24 hours- Final report to follow
02/03/24 19:54 Blood Culture - Preliminary
Blood/Venous No Growth in 24 hours- Final report to follow
02/03/24 19:54 Influenza Types A & B (GLADIS) - Final
Nasal Swab Negative for Influenza A & B, NAAT
Negative results must be combined with clinical observations
and patient history.
Nucleic Acid Amplification test (NAAT)performed on the
[employer] NOW platform.
[2024-02-05] MEDS: VANCOCIN 540 MG IV (14:03)
[2024-02-05 15:25] VITALS: BP 118/70
[2024-02-05 16:06] VITALS: BP 118/70
--- NOTE | 2024-02-05 18:27 | PTCARENOTE ---
Critical lab: Positive blood culture in progress forwarded to 1825 and placed in chart
[2024-02-05 23:13] VITALS: BP 105/73
[2024-02-06] MEDS: ZOSYN 50 IV ×3 (00:11→11:40)
[2024-02-06] MEDS: VANCOCIN 200 IV ×2 (05:50→17:33)
[2024-02-06] MEDS: THERAGRAN 1 TABLET PO (08:07)
[2024-02-06] MEDS: VISBIOME 1 CAP PO (08:07)
[2024-02-06] MEDS: VITAMIN D3 (cholecalciferol) 25 MCG PO (08:07)
[2024-02-06] MEDS: FLORASTOR 250 MG PO ×2 (08:07→21:01)
[2024-02-06 08:25] VITALS: BP 122/86
[2024-02-06 08:46] LABS: % Basophils 0.3 % (0-2); % Eosinophils 1.4 % (0-6); % Immature Granulocytes 0.5 % (0-0.5); % Lymphocytes 10.1 % (20.5-51.1); % Monocytes 13.8 % (1.7-9.3); % Neutrophils 73.9 % (42.2-75.2); Absolute Eosinophils 0.2 10^3/uL (0-0.7); Absolute Immature Granulocytes 0.1 10^3/uL (0-0.05); Absolute Lymphocytes 1.2 10^3/uL (1.2-3.4); Absolute Monocytes 1.6 10^3/uL (0.1-0.6); Absolute Neutrophils 8.4 10^3/uL (1.4-6.5); Hematocrit 33.2 % (39.0-52.0); Hemoglobin 11.3 g/dL (13.0-18.0); Mean Corpuscular Hgb 29.2 pg (27.0-31.0); Mean Corpuscular Volume 85.8 fL (80.0-94.0); Mean Platelet Volume 10.2 fL (7.4-10.4); Nucleated Red Blood Cells % 0 % (-); Platelet Count 182 10^3/uL (130-400); Red Blood Cell Count 3.87 10^6/uL (4.70-6.10); Red Cell Dist. Width 13.6 % (11.5-14.5); White Blood Cell Count 11.4 10^3/uL (4.8-10.8)
[2024-02-06 09:09] LABS: Blood Urea Nitrogen 12 mg/dl (9-20); Calcium 8.5 mg/dl (8.4-10.2); Carbon Dioxide 26 mmol/L (22-30); Chloride 107 mmol/L (98-107); Estimated Creatinine Clearance 77 ml/min; Glucose 107 mg/dl (70-99); Potassium 3.6 mmol/L (3.5-5.1); Sodium 141 mmol/L (135-145); eGFR > 60.00
--- NOTE | 2024-02-06 10:10 | PHA.VAN.FU ---
Vancomycin Assessment / Plan
- Assessment
Renal Function: Stable
WBC's are: Trending Up
In the past 24 hrs, patient has been: Febrile (Tmax = 100.6)
Concomitant Antimicrobials: Piperacillin-tazobactam
- Dosing Plan
Continue: Vanc 1000mg IV q12H
- Monitoring Plan
No level(s) ordered at this time: Consider levels after 02/06 1800 dose
- Follow Up
Pharmacy will continue to follow.
Vancomycin Follow UP
- -
Patient Age: 53
Patient Sex: Male
Vancomycin Day #: 2
Indication: Genito-Urinary Tract
Requesting Provider: Ruchi
Height / Weight:
Height 5 ft 6 in
Actual Weight 77.292 kg
IBW in k.8
Adjusted BW in k.2
- Vital Signs / Lab Results
Temp Pulse Resp BP Pulse Ox
98.2 F 66 16 122/86 96
02/06/24 08:25 02/06/24 08:25 02/06/24 08:25 02/06/24 08:25 02/06/24 08:25
Lab Results - Hematology
02/03/24 02/04/24 02/05/24
19:54 06:28 09:00
WBC 16.8 H 17.8 H 9.4
02/06/24
08:08
WBC 11.4 H
Lab Results - Chemistry
02/03/24 02/04/24 02/05/24
19:54 06:28 09:00
BUN 10 11 16
Creatinine 0.8 1.0 1.0
Estimated Creat Clear 98 77 77
Albumin 4.2 3.4 L
02/06/24
08:08
BUN 12
Creatinine 1.0
Estimated Creat Clear 77
Albumin
02/03/24
19:54
Lactic Acid 0.8
Microbiology Results
02/04/24 15:10 Body Fluid Culture - Preliminary
Fluid No Growth After 48 Hours
Gram Stain - Preliminary
02/03/24 20:08 Blood Culture - Preliminary
Blood/Venous Positive culture in progress
Gram Stain - Preliminary
02/03/24 19:54 Blood Culture - Preliminary
Blood/Venous No Growth in 48 hours- Final report to follow
--- NOTE | 2024-02-06 12:45 | W.PN.URO.CBU ---
Today's Communication / Plan
-
Continue abx
ID recs
Drain to bulb suction
Assessment / Plan
-
53m s/p radical prostatectomy, admitted with post op fever/pelvic fluid collection c/w lymphocele
s/p drainage by IR 02/03
continue zosyn
f/u cultures - gram positive organism prelim on blood cultures
ID recommendations for antibiotic course
Plan for discharge with drain to bulb suction and recording daily outputs
Diagnosis
-
Date of Service: February 06, 2024
-
Patient Diagnosis:
Post Op Day:
Patient Diagnosis:
s/p robotic prostatectomy
readmit with fluid/pelvic pain
ct c/w lymphocele
Subjective
-
Fever last night with headaches
Feeling well this AM
Had some mild vision changes yesterday that resolved after yesterday AM
Objective
-
Vital Signs
Temp Pulse Resp BP Pulse Ox
98.2 F 66 16 122/86 96
02/06/24 08:25 02/06/24 08:25 02/06/24 08:25 02/06/24 08:25 02/06/24 08:25
Intake and Output
02/05/24 02/06/24 02/07/24
06:59 06:59 06:59
Intake Total 1750 / 1750 1620 / 1620
Output Total 110 / 110 65 / 65
Balance 1640 / 1640 1555 / 1555
Intake:
Oral fluids 1740 / 1740 1620 / 1620
Amount instilled into Drain (
Total)
Left Abdomen Placed in IR
Output:
Drain Output (Total) 110 / 110 65 / 65
Left Abdomen Placed in IR 110 / 110 65 / 65
Other:
Number of approximated MODERATE 3 3
amounts of urine
Laboratory Results
02/06/24 08:08
02/06/24 08:08
Physical Exam
-
General - well developed, well nourished, no acute distress
Chest - clear bilaterally
Abdomen - soft, non-tender, drain in place with clear fluid
Skin - warm & dry with no rash
Neuro - AOx3, no motor deficits. Nonfocal, PEERLA
Extremities - no clubbing, no cyanosis, no edema
[2024-02-06 15:25] VITALS: BP 138/83
--- NOTE | 2024-02-06 15:52 | CON.ID ---
Consultation
-
Date/Time Consultation Requested: 02/06/24 8:31
Date/Time Consultation Performed: 02/06/24 15:53
Requesting Provider: Dr Hopper
Performing Provider: Dr Trujillo
Reason for Consultation: Bacteremia
Chief Complaint / Past History
Chief Complaint
abdominal pain
History of Present Illness
Mr Murray is a 53 year old male with history of Prostate cancer s/p robic prostatectomy about 2 months ago, diverticulitis who presented here 02/02 for suprapubic pain without radiation. No dysuria, urgency or hematuria. + Nausea, no vomiting. +
fevers.
Since arrival here has been spiking fevers to tmax of 102, curve is improving, bp stable, HR initially 16 now 11, hgb 11.3, plt 182, L shift noted on arrival, cr 1.0, lactic acid 0.8, one of two blood cultures with GPCS in the anaerobic culture only
thus far, CT cystic mass measuring approximately 6 x 6 x 9.5 cm, patient underwent drainage with IR showing 100 cs of yellow, nonpurulent fluid - it was sent for aerobic culture which showed GPCs on the gram stain but no growth. Patient is
currently on vancomycin and zoysn. ID is consulted for assistance with management.
Past History
Additional Past Medical History:
persistent atrial fibrillation, atrial flutter, diverticulitis, questionable irritable bowel syndrome, prostate cancer, probable BPH, insomnia, obesity
Additional Past Surgical History:
Cardiac (Ablation), Urological (Prostatectomy) and Other ([place] teeth, Hemorrhoids, )
Allergy History:
poison kirk extract Allergy (Verified 02/03/24 18:48)
super sensitive and speads easily
poison oak extract Allergy (Verified 02/03/24 18:48)
super sensitive and speads easily
poison sumac extract Allergy (Verified 02/03/24 18:48)
super sensitive and speads easily
pollen extracts Allergy (Verified 02/03/24 18:48)
sinus congestion and irritable throat
Medications Reviewed: Yes
Social History
Tobacco: Non-Smoker
Alcohol: Occasional
Drug: None
Family History
Family History: Not Pertinent
Review of Systems
Review of Systems
General: Fever and Chills
All systems: All other systems were reviewed and were negative
Vital Signs
Temp Pulse Resp BP Pulse Ox
98.2 F 66 16 122/86 96
02/06/24 08:25 02/06/24 08:25 02/06/24 08:25 02/06/24 08:25 02/06/24 08:25
Physical Exam
Physical Exam
Constitutional: No Acute Distress
Cardiovascular: Regular Rate and S1/S2; Negative Murmur or Rub
Pulmonary: Clear and Symmetric; Negative Wheezes, Rales or Rhonchi
Gastrointestinal: Soft, Non Tender, Non Distended and Normal Bowel Sounds
Genito-Urinary: Negative Suprapubic Tenderness
Skin: Warm and Dry; Negative Rash or Jaundice
Lines: Other (clear fluid in the drain)
Lab / Diagnostic Study Results
02/06/24 08:08
02/06/24 08:08
Abs Immat Gran (auto) 0.1 10^3/uL (0-0.05) H 02/06/24 08:08
Absolute Neuts (auto) 8.4 10^3/uL (1.4-6.5) H 02/06/24 08:08
Absolute Lymphs (auto) 1.2 10^3/uL (1.2-3.4) 02/06/24 08:08
Absolute Monos (auto) 1.6 10^3/uL (0.1-0.6) H 02/06/24 08:08
Absolute Basos (auto) 0.0 10^3/uL (0-0.2) 02/06/24 08:08
Immature Gran % 0.5 % (0-0.5) 02/06/24 08:08
Neutrophils % 73.9 % (42.2-75.2) 02/06/24 08:08
Lymphocytes % 10.1 % (20.5-51.1) L 02/06/24 08:08
Monocytes % 13.8 % (1.7-9.3) H 02/06/24 08:08
Eosinophils % 1.4 % (0-6) 02/06/24 08:08
Basophils % 0.3 % (0-2) 02/06/24 08:08
PT 16.1 Sec (11.4-14.6) H 02/04/24 06:28
INR 1.28 02/04/24 06:28
Lactic Acid 0.8 mmol/L (0.7-2.0) 02/03/24 19:54
Microbiology Results
Micro:
02/03/24 20:08 Blood Culture - Preliminary
Blood/Venous Positive culture in progress
Gram Stain - Preliminary
02/04/24 15:10 Body Fluid Culture - Preliminary
Fluid No Growth After 48 Hours
Gram Stain - Preliminary
02/03/24 19:54 Blood Culture - Preliminary
Blood/Venous No Growth in 48 hours- Final report to follow
02/03/24 19:54 Influenza Types A & B (GLADIS) - Final
Nasal Swab Negative for Influenza A & B, NAAT
Negative results must be combined with clinical observations
and patient history.
Nucleic Acid Amplification test (NAAT)performed on the
[employer] NOW platform.
Assessment / Plan
Intraabdominal Abscess/Infected Seroma
Bacteremia - possibly anaerobe
Fever
Leukocytosis
- body fluid gram stain: many GPCs that failed to grow in aerobic culture
- blood cultures: GPCs in anaerobic bottle only
- probably an anaerobe, would follow cultures another day to confirm aerobic bottle doesnt become positive as well
- repeat blood cultures x2
- continue vancomycin for now, stop zosyn start unasyn
- follow clinically, likely transition to oral therapy in next day of two
--- NOTE | 2024-02-06 16:49 | W.PN.HOSP.TC ---
Today's Communication/Plan
-
continue IV Abx per ID
follow repeat cultures
follow drain outputs
follow Urology recs
Assessment / Plan
Assessment / Plan
Assessment:
Sepsis (fever, tachycardia, leukocytosis) secondary to bladder mass possible abscess vs lymphocele versus diverticulum
- CT: left anterior margin of the urinary bladder, there is a cystic mass measuring approximately 6 x 6 x 9.5 cm in AP, transverse and craniocaudal dimensions respectively. This mass is new when compared with the 08/31/2023 MRI examination and the
etiology of this mass is uncertain. As it abuts the urinary bladder, bladder diverticulum is included in the differential diagnosis though no definite connection to the urinary bladder is demonstrated. concentric thickening of the wall of the
urinary bladder to as much as 1 cm such as may be seen with chronic partial bladder outlet obstruction.
- Urology following
- s/p IR guided drainage 02/03; follow cultures
- continue Vanco, day 2, Unasyn day 1 per ID
- pain control
Gram positive bacteremia
- continue Vanco, day 2, Unasyn day 1 per ID
- blood cultures repeat pending
History of prostate cancer
Underlying BPH
- s/p Robotic-assisted laparoscopic radical prostatectomy with Left staging pelvic lymphadenectomy 11/2023
- follows with Dr. Ramsey
Prior atrial fibrillation/atrial flutter resolved status post ablation
- not on anticoagulation
History of diverticulitis
Questionable IBS History
Insomnia
Obesity
DVT ppx: SCDs
Code: Full
Anticipated Discharge: > 48 hours
Subjective/Interval History
-
Date of Service: February 06, 2024
no new complaints
Objective Data
-
Labs:
Laboratory Results
02/06/24
08:08
WBC 11.4 H
Hgb 11.3 L
Hct 33.2 L
Plt Count 182 D
Sodium 141
Potassium 3.6
Chloride 107
Carbon Dioxide 26
BUN 12
Creatinine 1.0
Glucose 107 H
Calcium 8.5
Vital Signs:
Vital Signs
Temp Pulse Resp BP Pulse Ox
98.3 F 75 16 138/83 98
02/06/24 15:25 02/06/24 15:25 02/06/24 15:25 02/06/24 15:25 02/06/24 15:25
I&O
02/05/24 02/06/24 02/07/24
06:59 06:59 06:59
Intake Total 1750 / 1750 1620 / 1620
Output Total 110 / 110 65 / 65 30 / 30
Balance 1640 / 1640 1555 / 1555 -30 / -30
Physical Exam
-
General: No Apparent Distress
HEENT: Normocephalic and Atraumatic
Respiratory: Negative Wheezes or Rales
Cardiac: Regular Rhythm and S1/S2
GI: Soft
Genito-urinary: Other (drain in place)
Neuro: AO x 3
Hematologic / Lymphatic: No Lymphadenopathy
Psych: Calm
Data Reviewed
-
Total Time Spent with Patient (in minutes): 42
Labs: Labs Reviewed by me
[2024-02-06] MEDS: UNASYN IV ×2 (21:01→23:55)
[2024-02-06 23:17] VITALS: BP 116/75
[2024-02-06] MEDS: TYLENOL 650 MG PO (23:55)
[2024-02-07] MEDS: MELATONIN 5 MG PO ×2 (00:32→22:52)
[2024-02-07] MEDS: UNASYN IV ×3 (05:52→17:04)
[2024-02-07] MEDS: VANCOCIN 200 IV (06:30)
[2024-02-07 06:46] LABS: % Basophils 0.5 % (0-2); % Eosinophils 3.2 % (0-6); % Immature Granulocytes 0.5 % (0-0.5); % Lymphocytes 11.5 % (20.5-51.1); % Neutrophils 66.3 % (42.2-75.2); Absolute Basophils 0.1 10^3/uL (0-0.2); Absolute Eosinophils 0.4 10^3/uL (0-0.7); Absolute Immature Granulocytes 0.1 10^3/uL (0-0.05); Absolute Lymphocytes 1.3 10^3/uL (1.2-3.4); Absolute Monocytes 2.1 10^3/uL (0.1-0.6); Absolute Neutrophils 7.5 10^3/uL (1.4-6.5); Hematocrit 31.9 % (39.0-52.0); Mean Corp Hgb Conc. 34.5 g/dL (33.0-37.0); Mean Corpuscular Hgb 28.9 pg (27.0-31.0); Mean Corpuscular Volume 83.7 fL (80.0-94.0); Mean Platelet Volume 10.1 fL (7.4-10.4); Nucleated Red Blood Cells % 0 % (-); Platelet Count 203 10^3/uL (130-400); Red Blood Cell Count 3.81 10^6/uL (4.70-6.10); Red Cell Dist. Width 13.8 % (11.5-14.5); White Blood Cell Count 11.4 10^3/uL (4.8-10.8)
[2024-02-07 07:08] LABS: Blood Urea Nitrogen 9 mg/dl (9-20); Calcium 8.7 mg/dl (8.4-10.2); Carbon Dioxide 28 mmol/L (22-30); Chloride 105 mmol/L (98-107); Estimated Creatinine Clearance 86 ml/min; Glucose 98 mg/dl (70-99); Potassium 3.8 mmol/L (3.5-5.1); Sodium 142 mmol/L (135-145); eGFR > 60.00
[2024-02-07 07:30] VITALS: BP 139/77
--- NOTE | 2024-02-07 08:10 | W.PN.URO.CBU ---
Today's Communication / Plan
-
Continue abx per ID
Okay for discharge from standpoint when oral antibiotic regimen is determined
Assessment / Plan
-
53m s/p radical prostatectomy, admitted with post op fever/pelvic fluid collection c/w lymphocele
s/p drainage by IR 02/03
continue antibiotics per ID - vanc and unasyn
f/u repeat cultures - gram positive organism on blood cultures
Plan for discharge with drain to bulb suction and recording daily outputs
Okay for discharge from standpoint when oral antibiotic regimen is determined
Diagnosis
-
Date of Service: February 07, 2024
-
Patient Diagnosis:
Post Op Day:
Patient Diagnosis:
s/p robotic prostatectomy
readmit with fluid/pelvic pain
ct c/w lymphocele
Subjective
-
fever last night
otherwise no events and feeling well this AM
Objective
-
Vital Signs
Temp Pulse Resp BP Pulse Ox
101.2 F H 85 17 116/75 94
02/06/24 23:17 02/06/24 23:17 02/06/24 23:17 02/06/24 23:17 02/06/24 23:17
Intake and Output
02/06/24 02/07/24 02/08/24
06:59 06:59 06:59
Intake Total 1620 / 1620 2970 / 2970
Output Total / 30 / 30 30 / 30
Balance 1555 / 1555 2940 / 2940 -30 / -30
Intake:
Oral fluids 1620 / 1620 2520 / 2520
IV piggybacks 440 / 440
Amount instilled into Drain (
Total)
Left Abdomen Placed in IR
Output:
Drain Output (Total) 65 / 65 30 / 30 30 / 30
Left Abdomen Placed in IR
Other:
Number of approximated MODERATE 3 4
amounts of urine
Number of unmeasured liquid
stools
Rectum 1
Laboratory Results
02/07/24 06:03
02/07/24 06:03
Physical Exam
-
General - well developed, well nourished, no acute distress
[2024-02-07] MEDS: VITAMIN D3 (cholecalciferol) 25 MCG PO (08:12)
[2024-02-07] MEDS: FLORASTOR 250 MG PO ×2 (08:12→20:06)
[2024-02-07] MEDS: THERAGRAN 1 TABLET PO (08:12)
[2024-02-07] MEDS: VISBIOME 1 CAP PO (08:12)
--- NOTE | 2024-02-07 09:18 | PHA.VAN.FU ---
Vancomycin Assessment / Plan
- Assessment
Renal Function: Stable
WBC's are: Trending Up
In the past 24 hrs, patient has been: Febrile
Concomitant Antimicrobials: Ampicillin/Sulbactam
- Dosing Plan
Continue: 1gm Q12H
- Monitoring Plan
Peak Level: 02/06 @2030
Trough Level: 02/07 @0530
- Follow Up
Pharmacy will continue to follow.
Vancomycin Follow UP
- -
Patient Age: 53
Patient Sex: Male
Vancomycin Day #: 3
Indication: Genito-Urinary Tract
Requesting Provider: Ruchi
Height / Weight:
Height 5 ft 6 in
Actual Weight 77.292 kg
IBW in k.8
Adjusted BW in k.2
- Vital Signs / Lab Results
Temp Pulse Resp BP Pulse Ox
97.9 F 71 16 139/77 95
02/07/24 07:30 02/07/24 07:30 02/07/24 07:30 02/07/24 07:30 02/07/24 07:30
Lab Results - Hematology
02/05/24 02/06/24 02/07/24
09:00 08:08 06:03
WBC 9.4 11.4 H 11.4 H
Lab Results - Chemistry
02/05/24 02/06/24 02/07/24
09:00 08:08 06:03
BUN 16 12 9
Creatinine 1.0 1.0 0.9
Estimated Creat Clear 77 77 86
Microbiology Results
02/03/24 19:54 Blood Culture - Preliminary
Blood/Venous No Growth in 72 hours- Final report to follow
02/03/24 20:08 Blood Culture - Preliminary
Blood/Venous Positive culture in progress
Gram Stain - Preliminary
02/04/24 15:10 Body Fluid Culture - Preliminary
Fluid No Growth After 48 Hours
Gram Stain - Preliminary
--- NOTE | 2024-02-07 11:04 | W.PN.HOSP.TC ---
Today's Communication/Plan
-
await repeat cultures while continuing Vanco/Unasyn as per ID
Assessment / Plan
Assessment / Plan
Assessment:
Sepsis (fever, tachycardia, leukocytosis) secondary to bladder mass possible abscess vs lymphocele versus diverticulum
- CT: left anterior margin of the urinary bladder, there is a cystic mass measuring approximately 6 x 6 x 9.5 cm in AP, transverse and craniocaudal dimensions respectively. This mass is new when compared with the 08/31/2023 MRI examination and the
etiology of this mass is uncertain. As it abuts the urinary bladder, bladder diverticulum is included in the differential diagnosis though no definite connection to the urinary bladder is demonstrated. concentric thickening of the wall of the
urinary bladder to as much as 1 cm such as may be seen with chronic partial bladder outlet obstruction.
- Urology following
- s/p IR guided drainage 02/03; follow cultures
- continue Vanco, day 3, Unasyn day 2 per ID
- pain control
Gram positive, anaerobic bacteremia
- continue Vanco, day 2, Unasyn day 2 per ID
- blood cultures repeat pending
History of prostate cancer
Underlying BPH
- s/p Robotic-assisted laparoscopic radical prostatectomy with Left staging pelvic lymphadenectomy 11/2023
- follows with Dr. Ramsey
Prior atrial fibrillation/atrial flutter resolved status post ablation
- not on anticoagulation
History of diverticulitis
Questionable IBS History
Insomnia
Obesity
DVT ppx: SCDs
Code: Full
Anticipated Discharge: 24 - 48 hours
Subjective/Interval History
-
Date of Service: February 07, 2024
no new complaints at present
last night febrile which improved with Tylenol
Objective Data
-
Labs:
Laboratory Results
02/07/24
06:03
WBC 11.4 H
Hgb 11.0 L
Hct 31.9 L
Plt Count 203
Sodium 142
Potassium 3.8
Chloride 105
Carbon Dioxide 28
BUN 9
Creatinine 0.9
Glucose 98
Calcium 8.7
Vital Signs:
Vital Signs
Temp Pulse Resp BP Pulse Ox
97.9 F 71 16 139/77 95
02/07/24 07:30 02/07/24 07:30 02/07/24 07:30 02/07/24 07:30 02/07/24 07:30
I&O
02/06/24 02/07/24 02/08/24
06:59 06:59 06:59
Intake Total 1620 / 1620 2970 / 2970
Output Total 65 / 65 30 / 30 30 / 30
Balance 1555 / 1555 2940 / 2940 -30 / -30
Physical Exam
-
General: No Apparent Distress
HEENT: Normocephalic and Atraumatic
Respiratory: Negative Wheezes
Cardiac: Regular Rhythm and S1/S2
GI: Soft
Genito-urinary: No Costovertebral Tender
Neuro: AO x 3
Hematologic / Lymphatic: No Lymphadenopathy
Psych: Calm
Data Reviewed
-
Total Time Spent with Patient (in minutes): 42
Labs: Labs Reviewed by me
[2024-02-07] MEDS: TORADOL 10 MG IV (13:22)
--- NOTE | 2024-02-07 13:30 | PTCARENOTE ---
Patient stating to this RN his head feels 'foggy,' complaining of mild blurry vision; patient states similar symptoms occurring prior to admission and with fevers. Pupils round and equal, reactive to light bilaterally, patient with normal sensation
in upper and lower extremities, successfully read posters on bulletin board in front of bed out loud to this RN. Oral temp taken - 98.0F. PRN toradol given for pain around LLQ EMI drain rated 5/10. MD made aware, no new orders at this time.
--- NOTE | 2024-02-07 13:54 | CM ---
Reviewed the chart notes and spoke with the patient at the bedside. The patient anticipates being discharged to home with drain in place. Per patient, he is able to drain and record the amounts. CM continues to be available to patient/family and
is monitoring medical plan for needs at discharge.
Plan: Discharge plans at this point are home when medically stable with no anticipated needs.
[2024-02-07 15:30] VITALS: BP 123/69
--- NOTE | 2024-02-07 16:42 | W.PN.ID1 ---
Date of Service
Date of Service: February 07, 2024
Today's Communication
- stop vancomycin
- continue unasyn overnight- tomorrow AM switch to augmentin to complete 10 day course 02/02-02/11
- follow up with urology
Assessment / Plan
Intraabdominal Abscess/Infected Seroma
Bacteremia - gram positive anaerobe
Fever
Leukocytosis
- body fluid gram stain: many GPCs that failed to grow in aerobic culture
- blood cultures: GPCs in anaerobic bottle only
- probably an anaerobe, would follow cultures another day to confirm aerobic bottle doesnt become positive as well
- repeat blood cultures x2
- stop vancomycin
- continue unasyn overnight- tomorrow AM switch to augmentin to complete 10 day course 02/02-02/11
- follow up with urology
Chief Complaint
-: Other (intraabdominal abscess)
Subjective / Review of Systems
febrile to 1.1.2 overnight
bp stable
wbc 11.4
cr 0.9
blood culture IDd as anaerobic gpc
Vital Signs / Physical Exam
Vital Signs
Vital Signs
Temp Pulse Resp BP Pulse Ox
98.4 F 66 16 123/69 97
02/07/24 15:30 02/07/24 15:30 02/07/24 15:30 02/07/24 15:30 02/07/24 15:30
Physical Exam
Constitutional: No Acute Distress
Cardiovascular: Regular Rate and S1/S2; Negative Murmur or Rub
Pulmonary: Clear and Symmetric; Negative Wheezes or Rales
Gastrointestinal: Soft, Non Tender, Non Distended and Normal Bowel Sounds
Skin: Warm and Dry; Negative Rash or Jaundice
Objective Data
Lab Data
Lab Results
02/07/24 06:03
02/07/24 06:03
PT 16.1 Sec (11.4-14.6) H 02/04/24 06:28
INR 1.28 02/04/24 06:28
Estimated Creat Clear 86 ml/min 02/07/24 06:03
Lactic Acid 0.8 mmol/L (0.7-2.0) 02/03/24 19:54
Total Bilirubin 1.2 mg/dl (0.2-1.3) 02/04/24 06:28
AST 47 U/L (17-59) 02/04/24 06:28
ALT 39 U/L (0-50) 02/04/24 06:28
Alkaline Phosphatase 100 U/L (38-126) 02/04/24 06:28
Most recent labs reviewed.
Micro Results:
02/06/24 16:08 Blood Culture - Preliminary
Blood/Venous No Growth in 24 hours- Final report to follow
02/04/24 15:10 Body Fluid Culture - Preliminary
Fluid No Growth After 72 Hours
Gram Stain - Preliminary
02/03/24 20:08 Blood Culture - Preliminary
Blood/Venous Anaerobic gram positive cocci
Gram Stain - Preliminary
02/03/24 19:54 Blood Culture - Preliminary
Blood/Venous No Growth in 72 hours- Final report to follow
02/06/24 17:04 Blood Culture - Pending
Blood/Venous
02/03/24 19:54 Influenza Types A & B ([facility]) - Final
Nasal Swab Negative for Influenza A & B, NAAT
Negative results must be combined with clinical observations
and patient history.
Nucleic Acid Amplification test (NAAT)performed on the
[employer] platform.
[2024-02-07] MEDS: TYLENOL 650 MG PO (20:07)
[2024-02-07 23:25] VITALS: BP 122/71
[2024-02-08] MEDS: AUGMENTIN 875 MG/125 MG 1 TABLET PO (06:21)
[2024-02-08 07:35] VITALS: BP 128/82
[2024-02-08 07:38] LABS: % Basophils 0.4 % (0-2); % Eosinophils 3.7 % (0-6); % Immature Granulocytes 0.6 % (0-0.5); % Lymphocytes 12.1 % (20.5-51.1); % Monocytes 12.8 % (1.7-9.3); % Neutrophils 70.4 % (42.2-75.2); Absolute Basophils 0.1 10^3/uL (0-0.2); Absolute Eosinophils 0.5 10^3/uL (0-0.7); Absolute Immature Granulocytes 0.1 10^3/uL (0-0.05); Absolute Lymphocytes 1.5 10^3/uL (1.2-3.4); Absolute Monocytes 1.6 10^3/uL (0.1-0.6); Absolute Neutrophils 8.9 10^3/uL (1.4-6.5); Hematocrit 33.5 % (39.0-52.0); Hemoglobin 11.4 g/dL (13.0-18.0); Mean Corpuscular Hgb 29.2 pg (27.0-31.0); Mean Corpuscular Volume 85.7 fL (80.0-94.0); Mean Platelet Volume 10.2 fL (7.4-10.4); Nucleated Red Blood Cells % 0 % (-); Platelet Count 250 10^3/uL (130-400); Red Blood Cell Count 3.91 10^6/uL (4.70-6.10); Red Cell Dist. Width 13.8 % (11.5-14.5); White Blood Cell Count 12.7 10^3/uL (4.8-10.8)
[2024-02-08 07:57] LABS: Blood Urea Nitrogen 9 mg/dl (9-20); Carbon Dioxide 30 mmol/L (22-30); Chloride 104 mmol/L (98-107); Estimated Creatinine Clearance 96 ml/min; Glucose 100 mg/dl (70-99); Potassium 3.9 mmol/L (3.5-5.1); Sodium 141 mmol/L (135-145); eGFR > 60.00
[2024-02-08] MEDS: FLORASTOR 250 MG PO (08:34)
[2024-02-08] MEDS: VITAMIN D3 (cholecalciferol) 25 MCG PO (08:35)
[2024-02-08] MEDS: THERAGRAN 1 TABLET PO (08:35)
[2024-02-08] MEDS: VISBIOME 1 CAP PO (08:35)
--- NOTE | 2024-02-08 09:11 | W.PN.URO.CBU ---
Today's Communication / Plan
-
Stable for discharge
Assessment / Plan
-
53m s/p radical prostatectomy, admitted with post op fever/pelvic fluid collection c/w lymphocele
s/p drainage by IR 02/03
continue oral antibiotics course per ID. Afebrile x36 hours
Discharge with drain to bulb suction and patient instructed on recording daily outputs
Okay for discharge from standpoint
Outpatient follow up with Dr. Ramsey to determine timing of drain removal
Diagnosis
-
Date of Service: February 08, 2024
-
Patient Diagnosis:
s/p robotic prostatectomy
readmit with fluid/pelvic pain
ct c/w lymphocele
Subjective
-
feeling well
no fevers
mild pain at tube site
Objective
-
Vital Signs
Temp Pulse Resp BP Pulse Ox
98.7 F 62 18 122/71 98
02/07/24 23:25 02/07/24 23:25 02/07/24 23:25 02/07/24 23:25 02/07/24 23:25
Intake and Output
02/07/24 02/08/24 02/09/24
06:59 06:59 06:59
Intake Total 2970 / 2970 2770 / 2770
Output Total 30 60 / 60
Balance 2940 / 2940 2710 / 2710
Intake:
Oral fluids 2520 / 2520 2760 / 2760
IV piggybacks 440 / 440
Amount instilled into Drain (
Total)
Left Abdomen Placed in IR
Output:
Drain Output (Total) 60 / 60
Left Abdomen Placed in IR 60 / 60
Other:
Number of approximated SMALL 1
amounts of urine
Number of approximated MODERATE 4 3
amounts of urine
Number of unmeasured liquid
stools
Rectum 1
Laboratory Results
02/08/24 06:36
02/08/24 06:36
Physical Exam
-
General - well developed, no acute distress
Chest - clear
Abdomen - soft, non-tender. Drain in place with no erythema, clear straw colored fluid
Skin - warm & dry with no rash
--- NOTE | 2024-02-08 10:57 | W.PN.HOSP.TC ---
Today's Communication/Plan
-
dc today if cleared by ID
Assessment / Plan
Assessment / Plan
Assessment:
Sepsis (fever, tachycardia, leukocytosis) secondary to bladder mass possible abscess vs lymphocele versus diverticulum
- CT: left anterior margin of the urinary bladder, there is a cystic mass measuring approximately 6 x 6 x 9.5 cm in AP, transverse and craniocaudal dimensions respectively. This mass is new when compared with the 08/31/2023 MRI examination and the
etiology of this mass is uncertain. As it abuts the urinary bladder, bladder diverticulum is included in the differential diagnosis though no definite connection to the urinary bladder is demonstrated. concentric thickening of the wall of the
urinary bladder to as much as 1 cm such as may be seen with chronic partial bladder outlet obstruction.
- Urology following
- s/p IR guided drainage 02/03; follow cultures
- DC on Augmentin until 02/11 per ID
- pain control
Gram positive, anaerobic bacteremia
- DC on Augmentin until 02/11 per ID
- blood cultures repeat NGTD x 24 hours
History of prostate cancer
Underlying BPH
- s/p Robotic-assisted laparoscopic radical prostatectomy with Left staging pelvic lymphadenectomy 11/2023
- follows with Dr. Ramsey
Prior atrial fibrillation/atrial flutter resolved status post ablation
- not on anticoagulation
History of diverticulitis
Questionable IBS History
Insomnia
Obesity
DVT ppx: SCDs
Code: Full
Anticipated Discharge: Today
Subjective/Interval History
-
Date of Service: February 08, 2024
feels well no complaints
Objective Data
-
Labs:
Laboratory Results
02/08/24
06:36
WBC 12.7 H
Hgb 11.4 L
Hct 33.5 L
Plt Count 250 D
Sodium 141
Potassium 3.9
Chloride 104
Carbon Dioxide 30
BUN 9
Creatinine 0.8
Glucose 100 H
Calcium 9.0
Vital Signs:
Vital Signs
Temp Pulse Resp BP Pulse Ox
98.8 F 69 14 128/82 98
02/08/24 07:35 02/08/24 07:35 02/08/24 07:35 02/08/24 07:35 02/08/24 07:35
I&O
02/07/24 02/08/24 02/09/24
06:59 06:59 06:59
Intake Total 2970 / 2970 2770 / 2770
Output Total 30 / 30 60 / 60
Balance 2940 / 2940 2710 / 2710
Physical Exam
-
General: No Apparent Distress
HEENT: Normocephalic and Atraumatic
Respiratory: Negative Wheezes
Cardiac: Regular Rhythm and S1/S2
GI: Soft
Musculoskeletal: No Edema
Neuro: AO x 3
Hematologic / Lymphatic: No Lymphadenopathy
Psych: Calm
Data Reviewed
-
Total Time Spent with Patient (in minutes): 41
Labs: Labs Reviewed by me
--- NOTE | 2024-02-08 12:01 | W.PN.ID1 ---
Date of Service
Date of Service: February 08, 2024
Today's Communication
- switch to augmentin to complete 10 day course 02/02-02/11
- follow up with urology
Assessment / Plan
Intraabdominal Abscess/Infected Seroma
Bacteremia - gram positive anaerobe
Fever
Leukocytosis
- body fluid gram stain: many GPCs that failed to grow in aerobic culture
- blood cultures: GPCs in anaerobic bottle only - probable anaerobe
- repeat blood cultures x2 no growth to date
- switch to augmentin to complete 10 day course 02/02-02/11
- follow up with urology
Chief Complaint
-: Other (intraabdominal abscess)
Subjective / Review of Systems
afebrile
bp stable
minimal leukocytosis
no left shift
cr stable
repeat blood cultures no growth to date
Vital Signs / Physical Exam
Vital Signs
Vital Signs
Temp Pulse Resp BP Pulse Ox
98.8 F 69 14 128/82 98
02/08/24 07:35 02/08/24 07:35 02/08/24 07:35 02/08/24 07:35 02/08/24 07:35
Physical Exam
Constitutional: No Acute Distress
Cardiovascular: Regular Rate and S1/S2; Negative Murmur or Rub
Pulmonary: Clear and Symmetric; Negative Wheezes or Rales
Gastrointestinal: Soft, Non Tender, Non Distended and Normal Bowel Sounds
Skin: Warm and Dry; Negative Rash or Jaundice
Objective Data
Lab Data
Lab Results
02/08/24 06:36
02/08/24 06:36
PT 16.1 Sec (11.4-14.6) H 02/04/24 06:28
INR 1.28 02/04/24 06:28
Estimated Creat Clear 96 ml/min 02/08/24 06:36
Lactic Acid 0.8 mmol/L (0.7-2.0) 02/03/24 19:54
Total Bilirubin 1.2 mg/dl (0.2-1.3) 02/04/24 06:28
AST 47 U/L (17-59) 02/04/24 06:28
ALT 39 U/L (0-50) 02/04/24 06:28
Alkaline Phosphatase 100 U/L (38-126) 02/04/24 06:28
Most recent labs reviewed.
Micro Results:
02/04/24 15:10 Body Fluid Culture - Preliminary
Fluid No Growth After 72 Hours
Gram Stain - Preliminary
02/03/24 20:08 Blood Culture - Preliminary
Blood/Venous Anaerobic gram positive cocci
Gram Stain - Preliminary
02/03/24 19:54 Blood Culture - Preliminary
Blood/Venous No Growth in 4 days- Final report to follow
02/06/24 17:04 Blood Culture - Preliminary
Blood/Venous No Growth in 24 hours- Final report to follow
02/06/24 16:08 Blood Culture - Preliminary
Blood/Venous No Growth in 24 hours- Final report to follow
02/03/24 19:54 Influenza Types A & B ([facility]) - Final
Nasal Swab Negative for Influenza A & B, NAAT
Negative results must be combined with clinical observations
and patient history.
Nucleic Acid Amplification test (NAAT)performed on the
[employer] platform.
--- NOTE | 2024-02-08 12:10 | CM ---
Addendum entered by Carito Han RN 02/08/24 13:34:
Patient drove self home.
Original Note:
Reviewed the chart notes and spoke with the patient at the bedside. Patient is being discharged today to home. Patient's significant other will provide transportation. CM continues to be available to patient/family and is monitoring medical plan
for needs at discharge.
Plan: Discharge to home.
--- NOTE | 2024-02-08 12:23 | W.DS.TRANS ---
DC Summary - [employer]
-
Discharge Instructions:
Sleep Apnea Risk Low
Discharge Diagnosis/Procedures infected lymphocele and bacteremia
Diet Regular
Activity As tolerated
Bathing Restrictions no submerging in water, just showers, no baths
Instructions:
Stand-Alone Forms:
Changes to Home Medications: No
Discharge Medications:
DC Medications w/original date entered in [employer]
multivitamin with minerals-folic acid 200 mcg chewable tablet (Multivitamin Gummies) 2 tab PO DAILY Supplement 05/20/23
cholecalciferol (vitamin D3) 25 mcg (1,000 unit) tablet (Vitamin D3) 25 mcg PO DAILY Supplement 10/28/23
lactobacillus combination no.4 3 billion cell capsule (Probiotic) 3,000 mmu cells PO DAILY Gastrointestinal Issue 10/28/23
omega 8-pbj-ulo-fish oil 1,000 mg (120 mg-180 mg) capsule (Fish Oil) 1 cap PO DAILY Supplement 11/25/23
sildenafil 100 mg tablet 100 mg PO DAILY PRN ed 02/03/24
amoxicillin 875 mg-potassium clavulanate 125 mg tablet 1 tab PO Q12 #9 tabs 02/08/24
Home Medication Changes
Pending Results: No
Total time spent discharging patient (in min): 41
[2024-02-08 12:35] VITALS: BP 137/79
== END 2024-02-08 13:04 | disposition home or self-care (01) | DRG 862 ==
LOC: 2 NORTH 23:24
PROVIDERS: Clinical Nurse Specialist Family Health; Radiology Vascular & Interventional Radiology; ADMITTING PHYSICIAN Hospitalist; ATTENDING PHYSICIAN Internal Medicine; CONSULT PHYSICIAN Specialist; CONSULT PHYSICIAN Student in an Organized Health Care Education/Training Program; EMERGENCY PHYSICIAN Emergency Medicine; FAMILY PHYSICIAN Family Medicine
PROC: 0W9J30Z Drainage of Pelvic Cavity with Drainage Device, Percutaneous Approach (ICD-10-PCS; 2024-02-04)
DX: T81.44XA Sepsis following a procedure, initial encounter (principal); A41.89 Other specified sepsis; I48.19 Other persistent atrial fibrillation; I48.92 Unspecified atrial flutter; I89.8 Other specified noninfective disorders of lymphatic vessels and lymph nodes; M43.16 Spondylolisthesis, lumbar region; M51.37 Other intervertebral disc degeneration, lumbosacral region; N40.0 Benign prostatic hyperplasia without lower urinary tract symptoms; E66.9 Obesity, unspecified; G47.00 Insomnia, unspecified; Y83.8 Other surgical procedures as the cause of abnormal reaction of the patient, or of later complication, without mention of misadventure at the time of the procedure; Y92.9 Unspecified place or not applicable; Z68.27 Body mass index [BMI] 27.0-27.9, adult; Z11.52 Encounter for screening for COVID-19; Z85.46 Personal history of malignant neoplasm of prostate; Z87.01 Personal history of pneumonia (recurrent); Z87.19 Personal history of other diseases of the digestive system; Z79.51 Long term (current) use of inhaled steroids; Z79.1 Long term (current) use of non-steroidal anti-inflammatories (NSAID)
CPT/HCPCS: 49406; 74177; 80048; 80053; 81003; 82570; 83605; 85025; 85027; 85610; 87015; 87040; 87070; 87205; 87502; 87811; 96361; 96374; 99152; 99285; Q9967

== ENCOUNTER → 2024-04-18 08:30 | Outpatient (REF) | payer OTHER, SELFPAY | LOC: RAD 08:30 | PROVIDERS: ATTENDING PHYSICIAN Specialist; FAMILY PHYSICIAN Family Medicine | DX: I89.8 Other specified noninfective disorders of lymphatic vessels and lymph nodes (principal) | CPT/HCPCS: 72193; Q9967 ==